=== PATIENT | female | born 1950 | race African-American/Black ===

== ENCOUNTER 2020-11-08 19:11 | Emergency (ER) | payer OTHER ==
[~2020-11-08] VITALS: Ht 162.6 cm; Wt 61.5 kg
[2020-11-08 20:04] LABS: ABSOLUTE NEUTROPHILS 11.4 thou/uL (1.4-8.2); BASOPHILS 0.4 % (0.0-2.0); HEMATOCRIT 41.9 % (37.0-47.0); HEMOGLOBIN 13.8 gm/dL (12.0-15.0); MCH 30.9 pg (26.0-34.0); MCHC 32.8 g/dL (28.0-37.0); MONOCYTES 4.8 % (1.0-8.0); PLATELET COUNT 192 thou/uL (150-400); POLYS 88.8 % (36.0-66.0); RBC 4.46 mil/uL (4.20-5.00); RDW 13.3 % (10.5-14.5); WBC 12.9 thou/uL (4.0-11.0)
[2020-11-08 20:15] LABS: APTT 21.4 Seconds (24.5-32.8); INR 1.1; PROTIME 11.2 Seconds (9.3-11.4)
[2020-11-08 20:18] LABS: ANION GAP 11 mmol/L (7-16); BUN 14 mg/dL (7-18); CALCIUM 9.6 mg/dL (8.5-10.1); CHLORIDE 102 mmol/L (98-107); CO2 26 mmol/L (21-32); CREATININE 0.9 mg/dL (0.6-1.0); GLUCOSE 149 mg/dL (74-106); POTASSIUM 4.1 mmol/L (3.5-5.1); SODIUM 139 mmol/L (136-145)
[2020-11-08 20:23] LABS: ALBUMIN 4.6 g/dL (3.4-5.0); SGOT 35 U/L (15-37); SGPT 46 U/L (14-59); TOTAL BILIRUBIN 0.7 mg/dL (0.2-1.0); TOTAL PROTEIN 7.9 g/dL (6.4-8.2); TROPONIN-I <0.06 ng/mL (<0.06)
[2020-11-08 20:30] VITALS: BP 171/94
[2020-11-08 20:31] LABS: BE(vivo) -0.4 mmol/L (-2 to +3); HCO3 23.9 mmol/L (22.0-26.0); PCO2 38.2 mmHg (35.0-45.0); PO2 88.7 mmHg (80.0-100.0); pH 7.414 (7.360-7.450); sO2 96.9 % (92.0-98.0)
== END 2020-11-08 20:56 | disposition short-term general hospital (02) ==
LOC: ER 19:11
PROVIDERS: Emergency Medicine
DX: I62.9 Nontraumatic intracranial hemorrhage, unspecified (principal)

== ENCOUNTER 2021-06-19 06:12 | Inpatient (IN) | payer OTHER ==
[~2021-06-19] VITALS: Ht 152.4 cm; Wt 71.4 kg
[2021-06-19] VITALS (20 sets, daily range): BP systolic 113–143; BP diastolic 49–84
--- NOTE | ~2021-06-19 | EMS ---
[facility] [address] [place] [address] EMS Patient Care Report Name: JUNIOR VELASQUEZ Room #: 238-P ADM IN M.R.#: [id number] Admission: 06/19/21 Attend Phys: Carlo Shields MD Discharge: Date of : 46 Report #: [id number] THIS REPORT FOR: //name// Report Transmitted: 06/20/2021 08:58 EMS Care Summary [place], [place]/[facility] Incident [id number] @ 06/19/2021 05:44 Incident Location [address] Patient JUNIOR VELASQUEZ Female, 71 Years 1950 Patient Address [address] [place] [address] Patient History Diabetes,Hypertension (HTN),Stroke/CVA,Colostomy,Dysphagia, Patient Allergies No known allergies, Patient Medications Unknown, Chief Complaint Dark bloody emesis Disposition Transported No Lights/[place] Dispatch Reason Sick Person Transported To [facility] Narrative [place] Staff stated patient had vomited, dark, potentially bloody emesis last night. Tube feeding was stopped, her physician wants her transported to [place]. [address] [address] EMS Patient Care Report Name: JUNIOR VELASQUEZ Room #: 238-P ADM IN M.R.#: [id number] Admission: 06/19/21 Attend Phys: Carlo Shields MD Discharge: Date of : 46 Report #: [id number] Initial Vitals @06:05P: 120,BP: 140/80,Pain: 0/10,GCS: 7, @05:56P: 130,R: 18,BP: 131/76,Pain: 0/10,GCS: 7,Revised Trauma: 10, Assessments @05:56MENTAL:No Abnormalities,SKIN:HEENT:LUNG SOUNDS:General: No Abnormalities,ABDOMEN:General: No Abnormalities,PELVIS//GI:EXTREMITIES:Right Leg: Other,Right Arm: Other,Left Leg: Other,Left Arm: Other,PULSE:NEURO:No Abnormalities, Impression Gastrointestinal hemorrhage Procedures @05:56ALS AssessmentResponse: Unchanged Timeline 05:43,Call Received 05:43,Dispatch Notified 05:44,Dispatched 05:46,En Route 05:53,On Scene 05:55,At Patient 05:56,ALS Assessment,Response: Unchanged 05:56,BP: 131/76 M,PULSE: 130,RR: 18 R,SPO2: Ox,ETCO2: ,BG: ,PAIN: 0,GCS: 7, 05:59,Depart Scene 06:05,BP: 140/80 M,PULSE: 120,RR: R,SPO2: Ox,ETCO2: ,BG: ,PAIN: 0,GCS: 7, 06:10,At Destination 06:32,Call Closed Disclaimer v1.1 Copyright 2020 [employer] This EMS Care Summary contains data elements from the applicable legal record (which may be displayed differently). It is designed to provide pertinent information for the following purposes: continuity of care, clinical quality, and state data reporting. The complete legal record is available to ED staff and administrators of the receiving hospital in [employer] Patient Tracker. All data is provided "as is."
[~2021-06-19 06:12] MED LIST: CARVEDILOL25 MG PER TUBE; GENTAMICIN SULF30 GM TOP; HUMALOG100 UNIT/1 SUBQ; LEVOTHYROXINE88 MC1 PER TUBE; LIPITOR 40 MG T40 M1 PER TUBE; LISINOPRIL10 MG PER TUBE; METFORMIN HCL500 M3 PER TUBE; MIRALAX17 GM PO; MULTIVITAMINS1 EAC5 PER TUBE; NORVASC10 MG PER TUBE; PERIDEX15 ML SWISH&SPIT; PROSOURCE PLUS30 ML PO; SANTYL OINTMENT30 G1 TOP; SYNTHROID112 MC1 PO; SYSTANE 0.3-0.1 EACH OPHTHALMIC; TRANSDERM-SCOP1 EACH TOP; TYLENOL325 M1 PER TUBE; VANCO1GM IV; VITAMIN C500 M2 PER TUBE; ZOSYN 3.373.375 GM/1 IV
[2021-06-19 06:44] LABS: HEMATOCRIT 24.1 % (37.0-47.0); HEMOGLOBIN 7.3 gm/dL (12.0-15.0); MCH 22.5 pg (26.0-34.0); MCHC 30.3 g/dL (28.0-37.0); MCV 74.1 fL (80.0-100.0); PLATELET COUNT 416 thou/uL (150-400); RBC 3.26 mil/uL (4.20-5.00); RDW 19.2 % (10.5-14.5); WBC 16.4 thou/uL (4.0-11.0)
[2021-06-19 06:54] LABS: CALCIUM 8.4 mg/dL (8.5-10.1); CREATININE 5.7 mg/dL (0.6-1.0); POTASSIUM 5.8 mmol/L (3.5-5.1)
[2021-06-19 07:00] LABS: ALBUMIN 1.6 g/dL (3.4-5.0); TOTAL BILIRUBIN 0.3 mg/dL (0.2-1.0)
--- NOTE | 2021-06-19 08:45 | NUR ---
Chart review, New to ICU this morning during am unit rounds. Noted she been her before. Noted from unruly Lees. Will cont following as needed for dc needs.
--- NOTE | 2021-06-19 10:32 | NUR ---
PATIENT ARRIVED ON THE UNIT AT 0842. NO BELONGINGS ARRIVED WITH THE PATIENT. PATIENT'S DAUGHTER, MARISOL, WAS SPOKEN TO OVER THE PHONE FROM [phone] AND SHE WAS UPDATED AND EDUCATED ON THE PATIENT'S CONDITION, PLAN OF CARE, VISITOR'S POLICY, AND POLICY FOR RECEIVING PT INFORMATION OVER THE PHONE.
[2021-06-19 11:09] LABS: ABSOLUTE NEUTROPHILS 14.3 thou/uL (1.4-8.2); ANISOCYTOSIS 2+
[2021-06-19 11:10] LABS: HYPOCHROMASIA 2+; MICROCYTES 2+
[2021-06-19 12:33] LABS: CALCIUM 7.9 mg/dL (8.5-10.1); CREATININE 5.4 mg/dL (0.6-1.0); POTASSIUM 5.5 mmol/L (3.5-5.1)
[2021-06-19 12:40] LABS: ALBUMIN 1.4 g/dL (3.4-5.0); TOTAL BILIRUBIN 0.3 mg/dL (0.2-1.0); TOTAL PROTEIN 5.2 g/dL (6.4-8.2)
--- NOTE | 2021-06-19 16:26 | EKG ---
[address] [address] ELECTROCARDIOGRAM REPORT Name: JUNIOR VELASQUEZ Room #: 238-P ADM IN M.R.#: [id number] Admission: 06/19/21 Attend Phys: Carlo Shields MD Discharge: Date of : 46 Report #: [id number] [facility] ED Test Date: 2021-06-19 Test Time: 07:18:12 Pat Name: JUNIOR VELASQUEZ Department: Room: 238 Gender: F Regulatory Affairs Strategy Specialist: SARA : 1950 Requested By: Tristian Sen Order Number: [id number] MD: Dimitris Medina Measurements Intervals [place] Rate: 119 P: 49 NE: 131 QRS: 66 QRSD: 81 T: 33 QT: 326 QTc: 459 Interpretive Statements Sinus tachycardia Atrial premature complex No previous ECG available for comparison Electronically Signed On 06-19-2021 16:25:41 CDT by Dimitris Medina [email or web address] <ELECTRONICALLY SIGNED> By: Dimitris Medina MD, [facility] 06/19/21 1625 0718 07 Dimitris Medina MD, FACC /EPI
--- NOTE | 2021-06-19 16:27 | EKG ---
[address] [address] ELECTROCARDIOGRAM REPORT Name: JUNIOR VELASQUEZ Room #: 238-P ADM IN M.R.#: [id number] Admission: 06/19/21 Attend Phys: Carlo Shields MD Discharge: Date of : 46 Report #: [id number] [facility] Test Date: 2021-06-19 Test Time: 13:28:10 Pat Name: JUNIOR VELASQUEZ Department: Room: 238 P Gender: F Filler Feeder: ROBERT : 1950 Requested By: Carolyn Corley Order Number: [id number] MD: Dimitris Medina Measurements Intervals [place] Rate: 114 P: 52 WA: 139 QRS: 61 QRSD: 76 T: 39 QT: 334 QTc: 461 Interpretive Statements Sinus tachycardia Baseline wander in lead(s) V2 Compared to ECG 06/19/2021 07:18:12 Atrial premature complex(es) no longer present Electronically Signed On 06-19-2021 16:27:21 CDT by Dimitris Medina [email or web address] <ELECTRONICALLY SIGNED> By: Dimitris Medina MD, [facility] 06/19/21 1627 1328 1328 Dimitris Medina MD, [facility] /EPI
[2021-06-20] VITALS (24 sets, daily range): BP systolic 115–162; BP diastolic 52–84
[2021-06-20 03:14] LABS: ABSOLUTE NEUTROPHILS 7.5 thou/uL (1.4-8.2); BASOPHILS 0.7 % (0.0-2.0); EOSINOPHILS 2.3 % (0.0-3.0); LYMPHOCYTES 5.5 % (24.0-44.0); MCH 23.5 pg (26.0-34.0); MCHC 32.2 g/dL (28.0-37.0); MCV 73.1 fL (80.0-100.0); MONOCYTES 9.5 % (1.0-8.0); RBC 2.46 mil/uL (4.20-5.00); WBC 9.1 thou/uL (4.0-11.0)
[2021-06-20 03:15] LABS: PLATELET COUNT 320 thou/uL (150-400)
[2021-06-20 03:16] LABS: HEMOGLOBIN 5.8 gm/dL (12.0-15.0)
[2021-06-20 03:20] LABS: CALCIUM 7.3 mg/dL (8.5-10.1); CREATININE 5.5 mg/dL (0.6-1.0); MAGNESIUM 1.7 mg/dL (1.8-2.4); POTASSIUM 5.1 mmol/L (3.5-5.1)
--- NOTE | 2021-06-20 05:12 | NUR ---
CRITICAL LAB RESULTS RECEIVED HGB 5.8 AND HCT 18, CALL PLACED TO KEVIN VILLANUEVA COUNTER HELPER FOR ORDERS, ORDERS RECEIVED. NO NEW SIGNS OF ACTIVE BLEEDING NOTED AT THIS TIME, WILL CONTINUE TO MONITOR.
--- NOTE | 2021-06-20 10:07 | NUR ---
If okay with GI, start trickle tube feed of 20ml/hr of pivot 1.5
[2021-06-20 10:09] LABS: URINE BILIRUBIN NEGATIVE (Negative); URINE BLOOD 2+ (Negative); URINE CLARITY SL CLOUDY; URINE COLOR YELLOW; URINE GLUCOSE-RANDOM* NEGATIVE (Negative); URINE KETONES NEGATIVE (Negative); URINE NITRITE-REFLEX NEGATIVE (Negative); URINE PROTEIN (DIPSTICK) NEGATIVE (Negative); URINE SPECIFIC GRAVITY <= 1.005 (1.005-1.035); URINE UROBILINOGEN 0.2 E.U./dl (0.2-1.0)
[2021-06-20 10:12] LABS: URINE LEUKOCYTES-REFLEX 3+ (Negative)
[2021-06-20 10:39] LABS: FOLIC ACID 18.1 ng/mL (8.6-58.9)
[2021-06-20 10:41] LABS: YEAST-REFLEX Present (None Seen)
[2021-06-20 10:42] LABS: BACTERIA-REFLEX 1-9 Few /HPF (None Seen); CASTS None Seen /LPF (None Seen); CRYSTALS None Seen /LPF (None Seen); SQUAMOUS 0-3 Few /LPF (0-3); URINE RBC 3-10 Few /HPF (NONE SEEN)
--- NOTE | 2021-06-20 11:40 | NUR ---
Chart review. Spoke with daughter lucille via phone call, # [phone]. Intro to cm and dcp. Mi lives at [facility]. used to be able to get up to wheel chair, but with wound care she in bed now. she used to be able to talk until stroke in oct per daughter lucille. Has assist with ADL's at [facility]. Has peg tube, colostomy. Hgb low and getting transfusion today. Will cont following as needed for dc needs and sent updates to [facility].
--- NOTE | 2021-06-20 12:14 | NUR ---
PT'S SISTER AT BEDSIDE AT 1215, ANSWERED ALL QUESTIONS PER POC
--- NOTE | 2021-06-20 12:15 | P ---
[facility] [place] [address] PROCEDURE REPORT Name: JUNIOR VELASQUEZ Room #: 238-P [facility] IN M.R.#: [id number] Admission: 06/19/21 Attend Phys: Carlo Shields MD Discharge: Date of : 46 Report #: [id number] THIS REPORT FOR: cc: Robi Lua MD, Srinath MD McElhinney, Christian C. MD ~ cc: Dr. Lua DATE OF SERVICE: 06/19/2021 PROCEDURE PERFORMED: Upper endoscopy. HISTORY OF PRESENT ILLNESS: The patient is a 71-year-old female who lives in a nursing facility, nonverbal, bedridden, multiple medical problems including PEG tube. She has had a previous history of CVA, was noted to have coffee-ground emesis at the custodial. She has had a diverting colostomy and debridement of large decubitus ulcers. Plan is for upper endoscopy. Hemoglobin 7.3 on admission. DESCRIPTION OF PROCEDURE: The risks and benefits of the procedure were explained to the patient's daughter, those risks including but not limited to bleeding, perforation and the risk of sedation. She understood these risks and gave informed consent. Sedation was given using propofol per anesthesia. Next, using a standard Olympus upper endoscope, the scope was placed in the patient's mouth and advanced under direct vision through the esophagus, stomach and into the second portion of the duodenum. The larynx was normal in appearance. The upper esophagus was normal; however, in the mid and distal esophagus, severe grade D erosive esophagitis was noted. No active bleeding, but the tissue was friable and there was some old blood noted. Upon entering the stomach, overall the gastric mucosa was normal. The PEG tube was noted to be in good position in the mid body. There was no evidence of ulceration near the PEG tube bumper. The pylorus was normal and patent. The duodenal bulb, first and second portion were all normal. The scope was then withdrawn and the procedure terminated. The patient tolerated the procedure well. IMPRESSION: 1. Severe grade D erosive esophagitis, likely secondary to chronic reflux. 2. Percutaneous endoscopic gastrostomy tube noted to be in good position in the mid body. 3. Otherwise, normal upper endoscopy. RECOMMENDATIONS: 1. Continue PPI therapy. 2. We will add liquid Carafate through the PEG tube. 3. We will start Reglan and keep the head of the patient's bed elevated. [address] [address] PROCEDURE REPORT Name: JUNIOR VELASQUEZ Room #: 238-P [facility] IN M.R.#: [id number] Admission: 06/19/21 Attend Phys: Carlo Shields MD Discharge: Date of : 46 Report #: [id number] Thank you for allowing me to participate in her care. <ELECTRONICALLY SIGNED> By: Quinn Urban MD 06/20/21 1215 1351 2323 Quinn Urban, /raquel
--- NOTE | 2021-06-20 12:36 | NUR ---
WOUND CONSULT; ROUNDING WITH DR NOLAN. THE LEFT HIP AND SACRUM WERE ASSESSED. THE WOUNDBEDS ARE A PALE RED. NON ODOROUS. UNABLE TO TAKE MEASURMENTS AT THIS TIME SEE PICTURES. DR NOLAN'S ORDERS ARE FOR 1/4 DAKINS MOIST GAUZE,ABD,TAPE DAILY/PRN. DISCUSSED WITH DEANNA.
[2021-06-20 20:10] LABS: HEMATOCRIT 28.6 % (37.0-47.0)
[2021-06-20 20:13] LABS: HEMOGLOBIN 9.1 gm/dL (12.0-15.0)
[2021-06-21] VITALS (39 sets, daily range): BP systolic 136–170; BP diastolic 62–84
[2021-06-21 05:31] LABS: HEMOGLOBIN 9.1 gm/dL (12.0-15.0); MCH 25.5 pg (26.0-34.0); MCHC 32.6 g/dL (28.0-37.0); RBC 3.58 mil/uL (4.20-5.00); RDW 20.1 % (10.5-14.5); WBC 10.4 thou/uL (4.0-11.0)
[2021-06-21 05:54] LABS: MCV 78.1 fL (80.0-100.0)
[2021-06-21 06:27] LABS: CALCIUM 7.5 mg/dL (8.5-10.1); MAGNESIUM 1.7 mg/dL (1.8-2.4); POTASSIUM 3.7 mmol/L (3.5-5.1)
[2021-06-21 06:32] LABS: CREATININE 4.1 mg/dL (0.6-1.0)
--- NOTE | 2021-06-21 07:40 | NUR ---
ASSUMED CARE AT 1900. CHANGED SANTIAGO AROUND MIDNIGHT; LARGE AMOUNT OF SEDIMENT OR CLOT BROKE LOOSE AFTER DEFLATING BALLOON, HUGE BRIGHT OF INCONT URINE, AND THEN PT HAD MILKY WHITE OUTPUT THAT TRANSITIONED TO LIGHT YELLOW W/SOME SEDIMENT OVERNIGHT, CONTINUED TO HAVE SIGNIFICANT OUTPUT. WOUND PICTURES TAKEN OF SPOTS ON BILAT FEET, PRAFO BOOTS PLACED. NO OTHER CONCERNS, PROGRESSING TOWARDS GOALS.
[2021-06-21 10:49] LABS: HEMOGLOBIN 9.1 gm/dL (12.0-15.0)
--- NOTE | 2021-06-21 13:37 | NUR ---
71-year-old male remains treatment which continues for: Sepsis with sacral osteomyelitis, aspiration pneumonia, Upper GI bleed with hematemesis, Acute renal failure, suspected ATN, Diabetes, Neurogenic bladder with indwelling catheter and new wounds where wound care has been consulted. Patient's daughter Helene Kingsley at [phone] remains the next of kin and contact. The patient has been a resident at [facility]. [phone]. NOTE: Palliative consult completed on 06-21 and family to decide next steps today. Per attending AM MD review: Plan to continue current plan of ICU care and will follow with all consultants including awaiting family decision that is working with Palliative Care. NOTE: CM continues to follow MD's direction for care and transition and will intervene as needs are identified.
--- NOTE | 2021-06-21 18:08 | NUR ---
ASSUMED CARE OF PT AT 0700. FAMILY AT BEDSIDE THROUGHOUT THE DAY. ASNSERED QUESTIONS AND EXPLAINED ALL CARES GIVEN.
--- NOTE | 2021-06-21 18:10 | NUR ---
PT NOT PROGRESSING TOWARDS GOALS DUE TO CONTINOUS POOR RENAL LABS. FAMILY CONSULTING WITH PALLIATIVE CARE.
[2021-06-22] VITALS (43 sets, daily range): BP systolic 130–178; BP diastolic 58–103
[2021-06-22 05:49] LABS: HEMATOCRIT 28.4 % (37.0-47.0); HEMOGLOBIN 9.1 gm/dL (12.0-15.0); MCH 25.2 pg (26.0-34.0); MCHC 31.8 g/dL (28.0-37.0); MCV 79.2 fL (80.0-100.0); RBC 3.59 mil/uL (4.20-5.00); RDW 20.7 % (10.5-14.5)
[2021-06-22 05:54] LABS: CALCIUM 7.6 mg/dL (8.5-10.1); MAGNESIUM 1.4 mg/dL (1.8-2.4)
[2021-06-22 06:03] LABS: CREATININE 2.4 mg/dL (0.6-1.0); POTASSIUM 2.8 mmol/L (3.5-5.1)
[2021-06-22 12:44] LABS: MAGNESIUM 2.8 mg/dL (1.8-2.4); POTASSIUM 3.1 mmol/L (3.5-5.1)
--- NOTE | 2021-06-22 14:08 | NUR ---
spoke with palliative MAGAZINE SUPERVISOR, she spoke with daughter lucille yesterday about goals of care, luclile going to discuss with her brother and let us know if want to cont aggressive tx or possible go comfort/palliative. She can go back to [facility].
--- NOTE | 2021-06-22 19:17 | NUR ---
ASSUNED CARE AT 0700. PT ALERT TO VERBAL STIMULI, WILL SQUEEZE WITH LEFT HAND WHEN PROMPTED. ALSO MOANS WITH TURNS. PT STATUS CHANGED TO DNR TODAY AFTER PALLIATIVE CARE SAP SOLUTION MANAGER CONSULTANT SPOKE WITH FAMILY. PT IS MED/SURG STATUS NOW WELL. WOUND CARES COMPLETED TO ALL WOUNDS PER ORDERS WELL TO BILATERAL FEET. PREFO BOOTS ON AND Q2 TURNS COMPLETED TODAY WELL. TUBE FEED STARTED TODAY AT 20/HR, NO RESIDUALS THUS FAR AND WILL INCREASE RATE SLOWLY TO GET TO GOAL RATE OF 55/HR. POTASSIUM AND MAGNESIUM REPLACED PER ORDER. VSS. HTN AT TIMES BUT NOT SUSTAINED. REPORT GIVEN TO DEANNA KIRBY FOR DANCE COACH.
--- NOTE | 2021-06-22 22:09 | NUR ---
PT RESTING IN BED, ALERT AND AWAKENS TO TOUCH AND NOISE. TRACKS NURSE IN ROOM WITH EYES. LUNGS WITH WHEEZES. SANTIAGO AND COLSOTOMY AND PEG INTACT. WOUND DRESSINGS AND PRAFO BOOTS INTACT. NO DISCOMFORT NOTED WITH REPOSITIONING. NOTED EDEMA IN FEET.
[2021-06-23] VITALS (18 sets, daily range): BP systolic 131–160; BP diastolic 66–92
[2021-06-23 04:59] LABS: HEMATOCRIT 26.7 % (37.0-47.0); HEMOGLOBIN 8.7 gm/dL (12.0-15.0); MCH 25.7 pg (26.0-34.0); MCHC 32.5 g/dL (28.0-37.0); MCV 79.2 fL (80.0-100.0); RBC 3.38 mil/uL (4.20-5.00); RDW 20.5 % (10.5-14.5); WBC 10.7 thou/uL (4.0-11.0)
[2021-06-23 05:12] LABS: ALBUMIN 1.6 g/dL (3.4-5.0); CALCIUM 7.7 mg/dL (8.5-10.1); CREATININE 1.5 mg/dL (0.6-1.0); MAGNESIUM 2.2 mg/dL (1.8-2.4); PHOSPHORUS 2.1 mg/dL (2.5-4.9); POTASSIUM 3.2 mmol/L (3.5-5.1)
--- NOTE | 2021-06-23 08:16 | NUR ---
updates faxed to [facility]
--- NOTE | 2021-06-23 11:01 | NUR ---
Discuss during los and am unit rounds. Dc back to [facility] today with hospice eval and tx. Cm passed on information to daughter lucille, she going to look over hospice companies and referrals to be sent back. [facility]. Will cont following as needed for dc needs. Chart copy requested.
[2021-06-23] MEDS ORDERED: AUGMENTIN 500-1 EACH PO (14:52)
[2021-06-23] MEDS ORDERED: FLUCONAZOLE 10100 MG PER TUBE (14:52)
[2021-06-23] MEDS ORDERED: OMEPRAZOLE 20 M20 M1 PER TUBE (14:53)
--- NOTE | 2021-06-23 15:09 | NUR ---
Report called to [facility]. Spoke to Mary Kate Bray LPN.
--- NOTE | 2021-06-23 17:15 | NUR ---
Transport here to pickling tank operator Helene canada notified that patient will be back to [place].
--- NOTE | 2021-06-27 16:12 | HC ---
[facility] [place] [address] CONSULTATION Name: JUNIOR VELASQUEZ Room #: [address] [place] [address] IN M.R.#: [id number] Admission: 06/19/21 Attend Phys: Carlo Shields MD Discharge: 06/23/21 Date of : 46 Report #: [id number] THIS REPORT FOR: cc: Robi Lua MD, Srinath MD Althoff,Feliciano Chairez MD ~ DATE OF SERVICE: 06/20/2021 CHIEF COMPLAINT: Stage IV pressure ulcerations. HISTORY OF PRESENT ILLNESS: This is a 71-year-old female patient who comes here from long-term with hematemesis. She is currently in the ICU. She is nonverbal and all information obtained from her records. 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 She has had pressure ulcers to her sacrum and left hip. I have been asked to see her with regard to wound care. PAST MEDICAL HISTORY: Noted for previous hemorrhagic stroke, encephalopathy, hypertension, hypothyroidism, type 2 diabetes mellitus, hyperlipidemia and previous G-tube placement. SOCIAL HISTORY: Unknown. FAMILY HISTORY: Unknown. REVIEW OF SYSTEMS: Not obtainable due to the patient's condition. CURRENT MEDICATIONS: Include Zestril, polyethylene glycol, levothyroxine, vancomycin, Zosyn and insulin. ALLERGIES: No known drug allergies. PHYSICAL EXAMINATION: VITAL SIGNS: At this time include temperature 36.3, pulse 104, respiration of 24, blood pressure 130/60. GENERAL: This is a chronically ill-appearing female patient who appears to be in no obvious distress. HEENT: Head normocephalic. NECK: Supple. LUNGS: Diminished. HEART: Irregular. ABDOMEN: Soft. PELVIC: Region demonstrates stage IV pressure ulcer into the left hip and to the sacrum and both are healthy clean, granulating without evidence of overt infection. She has flexion contractures of both lower extremities, both hips and knees. [facility] [address] [place] [address] CONSULTATION Name: JUNIOR VELASQUEZ Room #: [address] [place] [address] [place] [facility].#: [id number] Admission: 06/19/21 Attend Phys: Carlo Shields MD Discharge: 06/23/21 Date of : 46 Report #: [id number] LABORATORY STUDIES: Sodium 132, potassium 5.1, chloride 98, CO2 of 21, BUN 77, creatinine 5.5, glucose 179. White blood cell count 9.1 with a hemoglobin of 5.8. CLINICAL IMPRESSION: 1. 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 2. Recent hematemesis. 3. Acute renal failure with dehydration. 4. Sepsis. 5. Type 2 diabetes mellitus. 6. Hemorrhagic cerebrovascular accident with hemiparesis and generalized debility. RECOMMENDATIONS: At this point in time, we will recommend quarter strength Dakin's moist gauze followed by ABD daily. She will need q. 2 hour turning and repositioning with low air loss surface and PRAFO boots on her heels at all times. She will need ongoing nutritional support via tube feeding. I appreciate being asked to see her in consultation. <ELECTRONICALLY SIGNED> By: Feliciano Cesar MD 06/27/21 1612 1140 [id number] Feliciano Cesar MD /nt
== END 2021-06-23 17:12 | disposition hospice, inpatient (51) | DRG 871 ==
LOC: ER 06:12 → EROBS 08:09 → ICU 08:09
PROVIDERS: Emergency Medicine; Hospitalist; Internal Medicine Nephrology; Nurse Practitioner; ADMIT Internal Medicine; ATTEND Internal Medicine
PROC: 0DJ08ZZ Inspection of Upper Intestinal Tract, Via Natural or Artificial Opening Endoscopic (ICD-10-PCS; principal; 2021-06-19)
PROC: 02HV33Z Insertion of Infusion Device into Superior Vena Cava, Percutaneous Approach (ICD-10-PCS; principal; 2021-06-19)
PROC: 30233N1 Transfusion of Nonautologous Red Blood Cells into Peripheral Vein, Percutaneous Approach (ICD-10-PCS; 2021-06-20)
DX: A41.9 Sepsis, unspecified organism (principal); L89.224 Pressure ulcer of left hip, stage 4; L89.154 Pressure ulcer of sacral region, stage 4; N17.0 Acute kidney failure with tubular necrosis; E43 Unspecified severe protein-calorie malnutrition; K22.11 Ulcer of esophagus with bleeding; J69.0 Pneumonitis due to inhalation of food and vomit; M46.28 Osteomyelitis of vertebra, sacral and sacrococcygeal region; D62 Acute posthemorrhagic anemia; E87.2 Acidosis; B37.41 Candidal cystitis and urethritis; I69.359 Hemiplegia and hemiparesis following cerebral infarction affecting unspecified side; R13.10 Dysphagia, unspecified; I10 Essential (primary) hypertension; E03.9 Hypothyroidism, unspecified; E11.9 Type 2 diabetes mellitus without complications; E78.5 Hyperlipidemia, unspecified; E87.5 Hyperkalemia; E86.0 Dehydration; Z66 Do not resuscitate; N31.9 Neuromuscular dysfunction of bladder, unspecified; Z86.711 Personal history of pulmonary embolism; I69.320 Aphasia following cerebral infarction; Z79.899 Other long term (current) drug therapy; Z20.822 Contact with and (suspected) exposure to COVID-19
CPT/HCPCS: 10078; 62110; 62900; 85076